=== PATIENT | female | born 1980 | race African-American/Black ===

== ENCOUNTER 2020-07-11 04:38 | Inpatient (IN) | payer BC ==
[2020-07-08 17:15] VITALS: BMI 32.5
[2020-07-11] MEDS ORDERED: IBUPROFEN 800 MG/8 ML IJ IVPB PRN (06:18)
[2020-07-11] MEDS ORDERED: SIMETHICONE 80 MG TAB.CHEW (FP) PO PRN (06:18)
[2020-07-11] MEDS ORDERED: DOCUSATE SODIUM 100 MG CAPSULE (FP) PO PRN (06:18)
[2020-07-11] MEDS ORDERED: ONDANSETRON 4 MG/2 ML VIAL IVPUSH PRN (06:18)
[2020-07-11] MEDS ORDERED: ACETAMINOPHEN 325 MG TABLET (FP) PO PRN (06:18)
[2020-07-11] MEDS ORDERED: BISACODYL 5 MG TABLET.DR (FP) PO PRN (06:18)
[2020-07-11] MEDS ORDERED: ZOLPIDEM TARTRATE 5 MG TABLET PO PRN (06:24)
[2020-07-11] MEDS ORDERED: VASOPRESSIN 20 UNITS/ML VIAL IV ONE (07:15)
[2020-07-11] MEDS ORDERED: GENTAMICIN 80MG PREMIX BAG IVPB ONE (08:09)
[2020-07-11] MEDS ORDERED: traMADol HCL 50 MG TABLET PO PRN (09:55)
[2020-07-11] MEDS ORDERED: oxyCODONE HCL 5 MG TABLET PO PRN (09:55)
[2020-07-11] MEDS ORDERED: ONDANSETRON 4 MG/2 ML VIAL ONE (09:55)
[2020-07-11] MEDS ORDERED: ACETAMINOPHEN 1000 MG/100 ML VIAL (NON FORMULARY) IVPB PRN (11:06)
[2020-07-11] MEDS: LACTATED RINGERS SOLUTION 1,000 ML IV SCH (13:55)
[2020-07-11] MEDS ORDERED: HYDROmorphone HCl 2 MG/ML VIAL ONE (15:07)
[2020-07-11] MEDS ORDERED: GENTAMICIN SO4 80 MG/2 ML VIAL ONE (15:20)
[2020-07-11] MEDS ORDERED: HYDROmorphone HCl 2 MG/ML VIAL IVPUSH ONE (15:53)
[2020-07-11] MEDS: GENTAMICIN 80 MG PREMIXED IVPB 80 MG/100 ML BAG IVPB SCH ×2 (16:41→18:05)
[2020-07-11] MEDS: MORPHINE SULFATE 2 MG/ML VIAL IVPUSH PRN ×2 (18:12→22:07)
[2020-07-11 19:20] LABS: HEMATOCRIT 32.2 % (32.4-45.2); HEMOGLOBIN 10.5 GM/dL (10.7-15.3); MCH 28.4 pg (25.7-33.7); MCHC 32.6 g/dl (32.0-36.0); MEAN CELL VOLUME 87.3 fl (80-96); PLATELET COUNT 220 K/MM3 (134-434); RBC 3.69 M/mm3 (3.60-5.2); RDW 14.1 % (11.6-15.6); WHITE BLOOD COUNT 11.6 K/mm3 (4.0-10.0)
[2020-07-11 19:45] LABS: POTASSIUM 4.4 mmol/L (3.5-5.1)
[2020-07-11 19:47] LABS: CALCIUM 8.6 mg/dL (8.5-10.1)
[2020-07-11 19:48] LABS: BLOOD UREA NITROGEN 11.2 mg/dL (7-18)
[2020-07-11 19:51] LABS: CREATININE 0.8 mg/dL (0.55-1.3)
[2020-07-12] MEDS: GENTAMICIN 80 MG PREMIXED IVPB 80 MG/100 ML BAG IVPB SCH ×2 (02:00→11:42)
[2020-07-12] MEDS: MORPHINE SULFATE 2 MG/ML VIAL IVPUSH PRN (02:00)
[2020-07-12] MEDS ORDERED: oxyCODONE HCL 5 MG TABLET PO PRN ×2 (06:18)
[2020-07-12 08:56] LABS: HEMATOCRIT 27.6 % (32.4-45.2); HEMOGLOBIN 9.3 GM/dL (10.7-15.3); MCH 28.9 pg (25.7-33.7); MCHC 33.7 g/dl (32.0-36.0); MEAN CELL VOLUME 85.8 fl (80-96); PLATELET COUNT 199 K/MM3 (134-434); RBC 3.21 M/mm3 (3.60-5.2); RDW 14.1 % (11.6-15.6); WHITE BLOOD COUNT 11.6 K/mm3 (4.0-10.0)
[2020-07-12 08:57] LABS: POTASSIUM 3.7 mmol/L (3.5-5.1)
[2020-07-12 09:01] LABS: CALCIUM 8.5 mg/dL (8.5-10.1)
[2020-07-12 09:02] LABS: BLOOD UREA NITROGEN 8.4 mg/dL (7-18)
[2020-07-12 09:05] LABS: CREATININE 0.7 mg/dL (0.55-1.3)
[2020-07-12] MEDS ORDERED: PT OWN MED DRAWER 7, Y5N ONE (09:52)
[2020-07-12] MEDS: ENOXAPARIN NA (PORCINE) 40 MG/0.4 ML DISP.SYRIN SQ SCH (10:10)
[2020-07-12] MEDS: oxyCODONE HCL 5 MG TABLET PO PRN (11:17)
[2020-07-12] MEDS: LACTATED RINGERS SOLUTION 1,000 ML IV SCH (18:20)
[2020-07-13] MEDS ORDERED: ACETAMINOPHEN 1000 MG/100 ML VIAL (NON FORMULARY) IVPB PRN ×2 (06:07→06:15)
[2020-07-13 08:43] LABS: BASO % 0.2 % (0-2.0); EOS % 1.8 % (0-4.5); HEMATOCRIT 25.3 % (32.4-45.2); HEMOGLOBIN 8.4 GM/dL (10.7-15.3); LYMPH % 17.7 % (8-40); MCH 28.3 pg (25.7-33.7); MCHC 33.2 g/dl (32.0-36.0); MEAN CELL VOLUME 85.3 fl (80-96); MEAN PLT VOLUME 7.6 fl (7.5-11.1); NEUT % 72.3 % (42.8-82.8); PLATELET COUNT 202 K/MM3 (134-434); RBC 2.96 M/mm3 (3.60-5.2); RDW 14.2 % (11.6-15.6)
[2020-07-13 08:53] LABS: INR 1.23 (0.83-1.09)
[2020-07-13] MEDS: GENTAMICIN 80 MG PREMIXED IVPB 80 MG/100 ML BAG IVPB SCH ×3 (08:54→17:03)
[2020-07-13 08:56] LABS: ACTIVATED PTT 28.2 SECONDS (25.2-36.5)
[2020-07-13 09:01] LABS: POTASSIUM 3.5 mmol/L (3.5-5.1)
[2020-07-13 09:03] LABS: CALCIUM 8.2 mg/dL (8.5-10.1)
[2020-07-13 09:04] LABS: ALBUMIN 2.6 g/dl (3.4-5.0); BLOOD UREA NITROGEN 7.3 mg/dL (7-18)
[2020-07-13 09:07] LABS: CREATININE 0.7 mg/dL (0.55-1.3)
[2020-07-13 09:09] LABS: BILIRUBIN,TOTAL 0.6 mg/dL (0.2-1); TOT PROT 5.5 g/dl (6.4-8.2)
[2020-07-13] MEDS: LACTATED RINGERS SOLUTION 1,000 ML IV SCH (10:10)
[2020-07-13] MEDS: ENOXAPARIN NA (PORCINE) 40 MG/0.4 ML DISP.SYRIN SQ SCH (10:10)
[2020-07-13] MEDS: oxyCODONE HCL 5 MG TABLET PO PRN (22:10)
[2020-07-14] MEDS ORDERED: PT OWN MED DRAWER 7, Y5N ONE (01:32)
[2020-07-14] MEDS: GENTAMICIN 80 MG PREMIXED IVPB 80 MG/100 ML BAG IVPB SCH ×2 (02:22→09:59)
[2020-07-14 06:23] VITALS: BP 102/52
[2020-07-14 08:55] VITALS: PULSE 88; TEMP 98.8
[2020-07-14] MEDS: ENOXAPARIN NA (PORCINE) 40 MG/0.4 ML DISP.SYRIN SQ SCH (09:59)
[2020-07-14 11:12] LABS: EPI CELLS >36 /uL (0-25.1); HYALINE CASTS 8 /uL (0-3.1); URINE APPEARANCE Clear; URINE BACTERIA 24 /uL (0-1359); URINE BILIRUBIN Negative (NEGATIVE); URINE COLOR Yellow; URINE GLUCOSE (UA) Negative (NEGATIVE); URINE KETONE Negative (NEGATIVE); URINE LEUK ESTERASE Trace (NEGATIVE); URINE NITRITE Negative (NEGATIVE); URINE PROTEIN Trace (NEGATIVE); URINE RBC 492 /uL (0-23.9); URINE WBC 33 /uL (0-25.8)
== END 2020-07-14 14:19 | disposition home or self-care (01) | DRG 742 ==
LOC: J2C 04:38 → J8W 15:40
PROVIDERS: ADMIT Obstetrics & Gynecology; ATTEND Obstetrics & Gynecology
PROC: 30233N1 Transfusion of Nonautologous Red Blood Cells into Peripheral Vein, Percutaneous Approach (ICD-10-PCS; 2020-07-11)
PROC: 0UB90ZZ Excision of Uterus, Open Approach (ICD-10-PCS; principal; 2020-07-11 07:30)
DX: D25.2 Subserosal leiomyoma of uterus (principal); R71.0 Precipitous drop in hematocrit; R10.2 Pelvic and perineal pain; R50.82 Postprocedural fever
CPT/HCPCS: 36415; 36430; 36511; 80048; 80053; 81003; 83605; 84703; 85025; 85027; 85610; 85730; 86850; 86900; 86901; 86922; 87040; 87086; 88305-TC; 94010; 94760; J0131; P9038; P9058